=== PATIENT | female | born 1995 | race Caucasian/White ===

== ENCOUNTER 2020-08-26 17:15 | Day surgery (SDC) | payer OTHER ==
[2020-08-26] MEDS ORDERED: hydrALAZINE 20 MG/ML VIAL SLOW IVP PRN (18:00)
[2020-08-26 18:28] VITALS: BMI 32.3
== END 2020-08-26 19:35 | disposition home or self-care (01) ==
LOC: CSHLD/OP 17:15
PROVIDERS: ATTEND Student in an Organized Health Care Education/Training Program
DX: O99.891 Other specified diseases and conditions complicating pregnancy (principal); R42 Dizziness and giddiness; R61 Generalized hyperhidrosis; Z3A.36 36 weeks gestation of pregnancy; Z88.0 Allergy status to penicillin
CPT/HCPCS: 99282

== ENCOUNTER 2020-09-15 15:40 | Outpatient (CLI) | payer OTHER ==
[2020-09-16 01:53] LABS: SARS-CoV-2 PCR by NAA Not Detected (NotDetected)
== END 2020-09-15 15:41 | disposition home or self-care (01) ==
LOC: CSHLAB 15:40
PROVIDERS: ATTEND Student in an Organized Health Care Education/Training Program
DX: Z20.822 Contact with and (suspected) exposure to COVID-19 (principal)
CPT/HCPCS: 87635; U0003; U0005

== ENCOUNTER 2020-09-18 19:51 | Inpatient (IN) | payer OTHER ==
[2020-09-18 20:18] VITALS: BMI 33.5
[2020-09-18] MEDS ORDERED: Diphenoxylate HCl/Atropine Tablet PO PRN (20:58)
[2020-09-18] MEDS ORDERED: Promethazine HCl 25 MG/ML VIAL IM PRN (20:58)
[2020-09-18] MEDS ORDERED: hydrALAZINE 20 MG/ML VIAL SLOW IVP PRN (20:58)
[2020-09-18] MEDS ORDERED: Ondansetron PF 4 MG/2 ML Vial IVP PRN (20:58)
[2020-09-18] MEDS ORDERED: Methylergonovine 0.2 MG/ML VIAL IM PRN (20:58)
[2020-09-18] MEDS ORDERED: Lidocaine 1% (PF) 30 ML VIAL SC PRN (20:58)
[2020-09-18] MEDS ORDERED: HYDROcodone/Acetaminophen 5/325 mg Tablet PO PRN (20:58)
[2020-09-18] MEDS ORDERED: Ibuprofen 800 MG TAB PO PRN (20:58)
[2020-09-18] MEDS ORDERED: Zolpidem Tartrate 5 MG TAB PO PRN (20:58)
[2020-09-18] MEDS ORDERED: Misoprostol 200 MCG TAB PR PRN (20:58)
[2020-09-18] MEDS ORDERED: Carboprost 250 MCG/ML AMP IM PRN (20:58)
[2020-09-18] MEDS ORDERED: Acetaminophen 500 MG TAB PO PRN (20:58)
[2020-09-18] MEDS ORDERED: NS w/ Oxytocin 30 units 500 ML IV PRN (21:11)
[2020-09-18] MEDS: Misoprostol 100 MCG TAB VAG SCH (21:27)
[2020-09-18 21:50] LABS: Hemoglobin 11.9 g/dL (12.0-15.5); Mean Corpuscular HGB CONC 35.3 g/dL (32.0-36.0); Mean Corpuscular Hemoglobin 32.1 pg (27.0-33.0); Mean Corpuscular Volume 90.8 fl (81.6-98.3); Mean Platelet Volume 11.9 fl (7.4-10.4); Platelet Count 169 10x3/uL (150-450); RBC Distribution Width 12.1 % (11.5-14.5); Red Blood Cell (RBC) Count 3.71 10x6/uL (3.90-5.03); White Blood Cell (WBC) Count 9.8 10x3/uL (3.5-10.5)
[2020-09-18 22:17] LABS: Syphilis Antibody Nonreactive (Nonreactive); Syphilis Antibody Index 0.05 S/CO (<1.00 Non-Reactive)
[2020-09-18 22:18] LABS: Hep B Surf Ag Non-Reactive S/CO (NonReactive)
[2020-09-18 22:32] LABS: HBSAg Index 0.15 S/CO (0-0.99)
[2020-09-19] MEDS: Misoprostol 100 MCG TAB VAG SCH ×4 (02:09→18:17)
[2020-09-19] MEDS: Butorphanol Tartrate 1 MG/ML VIAL SLOW IVP PRN ×3 (02:20→06:01)
[2020-09-19] MEDS: Lactated Ringer's 1,000 ML IV SCH ×3 (04:23→14:45)
[2020-09-19] MEDS ORDERED: Fentanyl 4 mcg/Bup 0.1% Cadd 100 ML ONE ×2 (06:57→14:43)
[2020-09-19] MEDS ORDERED: Benzocaine-Menthol 82.5 ML CAN TOP PRN (20:40)
[2020-09-19] MEDS ORDERED: Preparation H Ointment 28 GM TUBE PR PRN (20:40)
[2020-09-19] MEDS ORDERED: Milk Of Magnesia 30 ML UDCUP PO PRN (20:40)
[2020-09-19] MEDS ORDERED: Bisacodyl 10 MG SUPP PR PRN (20:40)
[2020-09-19] MEDS ORDERED: Promethazine HCl 25 MG/ML VIAL IM PRN (20:40)
[2020-09-19] MEDS ORDERED: Ondansetron PF 4 MG/2 ML Vial IVP PRN (20:40)
[2020-09-19] MEDS ORDERED: Lanolin Ointment 7 GM TUBE TOP PRN (20:40)
[2020-09-19] MEDS ORDERED: hydrALAZINE 20 MG/ML VIAL SLOW IVP PRN (20:40)
[2020-09-19] MEDS ORDERED: Adacel (T-DAP) 0.5 ML SYRINGE IM ONE (20:40)
[2020-09-19] MEDS ORDERED: diphenhydrAMINE 25 MG CAP PO PRN (20:40)
[2020-09-19] MEDS ORDERED: Boostrix 0.5 ML (Tdap) VIAL IM ONE (21:00)
[2020-09-19] MEDS ORDERED: NS w/ Oxytocin 30 units 500 ML IV SCH (21:00)
[2020-09-19] MEDS: Ibuprofen 800 MG TAB PO SCH (22:05)
[2020-09-19] MEDS: Docusate Calcium (SURFAK) 240 MG CAP PO SCH (22:05)
[2020-09-20] MEDS: Ibuprofen 800 MG TAB PO SCH ×3 (06:46→22:02)
[2020-09-20] MEDS ORDERED: Bupivacaine PF 0.5% 30 ML VIAL ONE (08:00)
[2020-09-20] MEDS ORDERED: Bupivacaine 0.25% HCL 30 ML VIAL ONE (08:00)
[2020-09-20] MEDS: Docusate Calcium (SURFAK) 240 MG CAP PO SCH ×2 (10:22→22:02)
[2020-09-20] MEDS: Prenatal Vitamin 1 TAB PO SCH (10:23)
[2020-09-20] MEDS: HYDROcodone/Acetaminophen 5/325 mg Tablet PO PRN ×2 (10:25→16:51)
[2020-09-20] MEDS: Cyclobenzaprine 10 MG TAB PO PRN (16:51)
[2020-09-20] MEDS: Ferrous Sulfate 325 MG TAB PO SCH (16:54)
[2020-09-21] MEDS: Cyclobenzaprine 10 MG TAB PO PRN ×2 (00:17→08:30)
[2020-09-21] MEDS: Ibuprofen 800 MG TAB PO SCH ×2 (05:29→14:38)
[2020-09-21] MEDS: HYDROcodone/Acetaminophen 5/325 mg Tablet PO PRN ×2 (08:28→10:07)
[2020-09-21] MEDS: Docusate Calcium (SURFAK) 240 MG CAP PO SCH (08:28)
[2020-09-21] MEDS: Prenatal Vitamin 1 TAB PO SCH (08:30)
[2020-09-21] MEDS: Ferrous Sulfate 325 MG TAB PO SCH (08:32)
[2020-09-21 11:48] VITALS: BP 110/69; TEMP 98.5
== END 2020-09-21 16:15 | disposition home or self-care (01) | DRG 807 ==
LOC: CSHLD/OP 19:51 → CSHLD 20:01 → CSHPP 09-19 20:50
PROVIDERS: ADMIT Student in an Organized Health Care Education/Training Program; ATTEND Student in an Organized Health Care Education/Training Program
PROC: 10E0XZZ Delivery of Products of Conception, External Approach (ICD-10-PCS; principal; 2020-09-19)
PROC: 0KQM0ZZ Repair Perineum Muscle, Open Approach (ICD-10-PCS; 2020-09-19)
PROC: 3E033VJ Introduction of Other Hormone into Peripheral Vein, Percutaneous Approach (ICD-10-PCS; 2020-09-19)
DX: O07.1 Delayed or excessive hemorrhage following failed attempted termination of pregnancy (principal); Z37.0 Single live birth; Z3A.40 40 weeks gestation of pregnancy; Z20.822 Contact with and (suspected) exposure to COVID-19
CPT/HCPCS: 51702; 62272; 85027; 86780; 86850; 86900; 86901; 87340; 87635; J0595; J2405; J2590; S0020; U0003; U0005

== ENCOUNTER 2020-09-24 13:13 | Day surgery (SDC) | payer OTHER ==
[2020-09-24 15:05] VITALS: BMI 31.6
== END 2020-09-24 17:09 | disposition home health service (06) ==
LOC: CSHERS 13:13 → CSHLD/OP 14:49
PROVIDERS: ATTEND Obstetrics & Gynecology
DX: G97.1 Other reaction to spinal and lumbar puncture (principal); Z88.0 Allergy status to penicillin
CPT/HCPCS: 62273; 99284

== ENCOUNTER 2022-07-23 09:18 | Day surgery (SDC) | payer BC ==
[2022-07-23 09:47] VITALS: BMI 32.8
[2022-07-23] MEDS ORDERED: hydrALAZINE 20 MG/ML VIAL SLOW IVP PRN (12:33)
[2022-07-23] MEDS ORDERED: Acetaminophen 325 MG TAB PO SCH (12:45)
== END 2022-07-23 14:30 | disposition home or self-care (01) ==
LOC: CSHLD/OP 09:18
PROVIDERS: ATTEND Student in an Organized Health Care Education/Training Program
DX: O99.891 Other specified diseases and conditions complicating pregnancy (principal); M54.9 Dorsalgia, unspecified; O26.893 Other specified pregnancy related conditions, third trimester; R10.30 Lower abdominal pain, unspecified; Z79.899 Other long term (current) drug therapy; Z3A.31 31 weeks gestation of pregnancy; W10.8XXA Fall (on) (from) other stairs and steps, initial encounter
CPT/HCPCS: 76819; 99282

== ENCOUNTER 2022-09-14 06:51 | Inpatient (IN) | payer BC ==
[2022-09-14 07:18] VITALS: BMI 33.7
[2022-09-14] MEDS ORDERED: Ibuprofen 800 MG TAB PO PRN (08:00)
[2022-09-14] MEDS ORDERED: Misoprostol 100 MCG TAB VAG SCH (08:00)
[2022-09-14] MEDS ORDERED: hydrALAZINE 20 MG/ML VIAL SLOW IVP PRN ×2 (08:00→18:25)
[2022-09-14] MEDS ORDERED: Misoprostol 200 MCG TAB PR PRN (08:00)
[2022-09-14] MEDS ORDERED: Methylergonovine 0.2 MG/ML VIAL IM PRN (08:00)
[2022-09-14] MEDS ORDERED: HYDROcodone/Acetaminophen 5/325 mg Tablet PO PRN ×2 (08:00→18:25)
[2022-09-14] MEDS ORDERED: Lactated Ringer's 1,000 ML IV SCH (08:00)
[2022-09-14] MEDS ORDERED: Carboprost 250 MCG/ML AMP IM PRN (08:00)
[2022-09-14] MEDS ORDERED: Acetaminophen 500 MG TAB PO PRN (08:00)
[2022-09-14] MEDS ORDERED: Diphenoxylate HCl/Atropine Tablet PO PRN (08:00)
[2022-09-14] MEDS ORDERED: Lidocaine 1% (PF) 30 ML VIAL SC PRN (08:00)
[2022-09-14] MEDS ORDERED: Ondansetron PF 4 MG/2 ML Vial IVP PRN ×3 (08:00→18:25)
[2022-09-14] MEDS ORDERED: NS w/ Oxytocin 30 units 500 ML IV SCH ×2 (08:00)
[2022-09-14] MEDS ORDERED: Promethazine HCl 25 MG/ML VIAL IM PRN ×2 (08:00→13:11)
[2022-09-14] MEDS ORDERED: fentaNYL 50 mcg/mL 1 mL Vial SLOW IVP PRN (08:19)
[2022-09-14] MEDS ORDERED: Misoprostol 100 MCG TAB ONE (08:20)
[2022-09-14 08:42] LABS: Hemoglobin 11.2 g/dL (12.0-15.5); Mean Corpuscular HGB CONC 33.9 g/dL (32.0-36.0); Mean Corpuscular Hemoglobin 30.2 pg (27.0-33.0); Mean Corpuscular Volume 88.9 fl (81.6-98.3); Mean Platelet Volume 11.7 fl (7.4-10.4); Platelet Count 161 10x3/uL (150-450); RBC Distribution Width 12.5 % (11.5-14.5); Red Blood Cell (RBC) Count 3.71 10x6/uL (3.90-5.03); White Blood Cell (WBC) Count 6.3 10x3/uL (3.5-10.5)
[2022-09-14 09:18] LABS: Syphilis Antibody Nonreactive (Nonreactive)
[2022-09-14 09:19] LABS: HBSAg Index 0.17 S/CO (0-0.99); Hep B Surf Ag - L&D Non-Reactive S/CO (NonReactive)
[2022-09-14] MEDS ORDERED: Fentanyl 2 mcg/Bup 0.1% Cadd 100 ML ONE (12:29)
[2022-09-14] MEDS ORDERED: fentaNYL 50 mcg/mL 1 mL Vial ONE (13:03)
[2022-09-14] MEDS ORDERED: ePHEDrine Sulfate 50 MG/10 ML VIAL SLOW IVP PRN (13:11)
[2022-09-14] MEDS ORDERED: diphenhydrAMINE 50 MG/ML VIAL IVP PRN (13:11)
[2022-09-14] MEDS ORDERED: Lactated Ringer's 500 ML IV PRN (13:11)
[2022-09-14] MEDS ORDERED: Moisturizing Cream (Eucerin) 113 GM JAR TOP PRN (13:11)
[2022-09-14] MEDS ORDERED: Acetaminophen 325 MG TAB PO PRN (13:11)
[2022-09-14] MEDS ORDERED: Naloxone HCl 0.4 mg/ml Vial IVP PRN ×2 (13:11)
[2022-09-14] MEDS ORDERED: Communication Order-Pharmacy FS SCH (13:15)
[2022-09-14] MEDS ORDERED: Fentanyl 2 mcg/Bupivacaine 0.1% Cassette 100 ML EPIDURAL SCH (13:15)
[2022-09-14] MEDS ORDERED: Hepatitis B Vaccine 10 MCG/0.5 ML SYR ONE (16:29)
[2022-09-14] MEDS ORDERED: Phytonadione Neonatal 1 MG/0.5 ML AMP ONE (16:29)
[2022-09-14] MEDS ORDERED: Erythromycin Base 0.5% Oint 1 GM TUBE ONE (16:29)
[2022-09-14] MEDS ORDERED: Bisacodyl 10 MG SUPP PR PRN (18:25)
[2022-09-14] MEDS ORDERED: Preparation H Ointment 28 GM TUBE PR PRN (18:25)
[2022-09-14] MEDS ORDERED: diphenhydrAMINE 25 MG CAP PO PRN (18:25)
[2022-09-14] MEDS ORDERED: Milk Of Magnesia 30 ML UDCUP PO PRN (18:25)
[2022-09-14] MEDS ORDERED: Benzocaine-Menthol 82.5 ML CAN TOP PRN (18:25)
[2022-09-14] MEDS ORDERED: Lanolin Ointment 7 GM TUBE TOP PRN (18:25)
[2022-09-14] MEDS ORDERED: Boostrix 0.5 ML (Tdap) VIAL (>/=7 yrs of age) IM ONE (18:25)
[2022-09-14] MEDS: Ibuprofen 800 MG TAB PO SCH (20:59)
[2022-09-14] MEDS: Docusate 100 MG CAP PO SCH (20:59)
[2022-09-15] MEDS: Ibuprofen 800 MG TAB PO SCH ×2 (06:02→14:21)
[2022-09-15] MEDS ORDERED: Ferrous Sulfate 325 MG TAB PO SCH (08:00)
[2022-09-15] MEDS: Docusate 100 MG CAP PO SCH (08:16)
[2022-09-15] MEDS ORDERED: Prenatal Vitamin 1 TAB PO SCH (09:00)
[2022-09-15 12:15] VITALS: BP 110/59; TEMP 97.7
== END 2022-09-15 18:24 | disposition home or self-care (01) | DRG 807 ==
LOC: CSHLD 06:51 → CSHPP 18:45
PROVIDERS: ADMIT Student in an Organized Health Care Education/Training Program; ATTEND Student in an Organized Health Care Education/Training Program
PROC: 10E0XZZ Delivery of Products of Conception, External Approach (ICD-10-PCS; principal; 2022-09-14)
PROC: 0HQ9XZZ Repair Perineum Skin, External Approach (ICD-10-PCS; 2022-09-14)
PROC: 3E0P7VZ Introduction of Hormone into Female Reproductive, Via Natural or Artificial Opening (ICD-10-PCS; 2022-09-14)
PROC: 10907ZC Drainage of Amniotic Fluid, Therapeutic from Products of Conception, Via Natural or Artificial Opening (ICD-10-PCS; 2022-09-14)
DX: O70.0 First degree perineal laceration during delivery (principal); Z37.0 Single live birth; Z3A.39 39 weeks gestation of pregnancy
CPT/HCPCS: 36415; 51702; 85027; 86780; 86850; 86900; 86901; 87340; J2405; J2590